=== PATIENT | female | born 1985 | race Caucasian/White ===

== ENCOUNTER 2018-04-30 20:03 | Emergency (ER) | payer MEDICAID ==
[~2018-04-30] VITALS: Ht 172.7 cm; Wt 59.4 kg
--- NOTE | 2018-04-30 20:45 | NUR ---
Dr. Rayo at bedside for MSE.
[2018-04-30] MEDS ORDERED: KETOROLAC TROMETHAMINE 15 MG INJ IVP ONE (21:00)
[2018-04-30] MEDS ORDERED: DEXAMETHASONE SOD PHOSPHATE 4 MG INJ IV ONE (21:00)
[2018-04-30] MEDS ORDERED: IV NORMAL SALINE 1000 ML BAG IV ONE (21:00)
--- NOTE | 2018-04-30 21:00 | NUR ---
Pt provided urine sample, sent lab.
[2018-04-30] MEDS ORDERED: KETOROLAC TROMETHAMINE 15 MG INJ ONE (21:28)
[2018-04-30] MEDS ORDERED: DEXAMETHASONE SOD PHOSPHATE 10 MG INJ ONE (21:28)
[2018-04-30 21:31] LABS: BASOPHILS # (AUTO) 0.1 K/uL (0.0-8.0); BASOPHILS % (AUTO) 0.4 % (0.0-2.0); HEMATOCRIT 39.1 % (31.2-41.9); HEMOGLOBIN 13.5 g/dL (10.9-14.3); LYMPHOCYTES # (AUTO) 1.2 K/uL (20.0-40.0); LYMPHOCYTES % (AUTO) 8.3 % (20.5-51.5); MEAN CORPUSCULAR HEMOGLOBIN 30.7 uug (24.7-32.8); MEAN CORPUSCULAR HGB CONC 35 g/dL (32.3-35.6); MONOCYTES # (AUTO) 1.1 K/uL (2.0-10.0); MONOCYTES % (AUTO) 7.4 % (0.0-11.0); NEUTROPHILS # (AUTO) 12.3 K/uL (1.8-8.9); NEUTROPHILS % (AUTO) 83.9 % (38.5-71.5); PLATELET COUNT (AUTO) 295 K/uL (179-408); RED BLOOD CELL COUNT(AUTO) 4.39 MIL/uL (3.63-4.92); WHITE BLOOD COUNT (AUTO) 14.6 K/uL (3.8-11.8)
[2018-04-30] MEDS ORDERED: ONDANSETRON 4 MG/2 ML VIAL ONE (21:37)
[2018-04-30 21:41] LABS: POTASSIUM 4.1 mmol/L (3.5-5.1)
[2018-04-30] MEDS ORDERED: ONDANSETRON IV *ER 4 MG/2 ML VIAL IV ONE (21:45)
[2018-04-30 21:48] LABS: BILIRUBIN,DIRECT 0.1 mg/dL (0.0-0.2); BILIRUBIN,TOTAL 0.6 mg/dL (0.2-1.0); TOTAL PROTEIN, SERUM 8.4 g/dL (6.4-8.2)
[2018-04-30 22:12] LABS: *BILIRUBIN,URIN NEGATIVE (NEGATIVE); *BLOOD, URINE 2+ (NEGATIVE); *CLARITY,URINE CLEAR (CLEAR); *COLOR,URINE YELLOW (YELLOW); *KETONES,URINE NEGATIVE (NEGATIVE); *PROTEIN,URINE NEGATIVE (NEGATIVE); *UROBILINOGEN,URINE 0.2 E.U./dl (NORMAL); LEUKOCYTE ESTERASE ,URINE NEGATIVE (NEGATIVE); NITRITE, URINE NEGATIVE (NEGATIVE); PH,URINE 8.5 (5.0-8.0); UGLUCOSE NEGATIVE (NEGATIVE)
[2018-04-30 22:15] LABS: *URINE HCG, QUAL NEGATIVE (NEGATIVE)
[2018-04-30 22:32] LABS: BACTERIA,URINE MANY /HPF (NONE SEEN); RENAL EPITHELIAL CELLS,URINE FEW /LPF (NONE SEEN); SQUAMOUS EPITHELIAL CELL,UR MANY /HPF (NONE SEEN)
[2018-04-30] MEDS ORDERED: ACETAMINOPHEN 325 MG TABLET PO ONE (23:15)
[2018-04-30] MEDS ORDERED: ACETAMINOPHEN ES 500 MG TABLET ONE (23:16)
--- NOTE | 2018-05-01 00:10 | NUR ---
Patient discharged to home in stable conditon. Written and verbal after care instructions given. Patient verbalizes understanding of instructions. Pt ambulated out of ER with steady gait, no acute signs of distress, VSS, all belongings taken, IV site discontinued.
[2018-05-01 00:11] VITALS: BP 98/67
== END 2018-05-01 00:11 | disposition home or self-care (01) ==
LOC: ER 20:03
DX: B34.9 Viral infection, unspecified (principal)
CPT/HCPCS: 36415; 71045; 80048; 80076; 81001; 83605; 84484; 84703; 85025; 85730; 86403; 87040 ×2; 87400; 96361; 96374; 96375; 99285; J1885; J2405; 70030-TC; 87070; 87086; A4663; A9150; J1100; J7030

== ENCOUNTER 2018-05-01 23:19 | Emergency (ER) | payer MEDICAID ==
[~2018-05-01] VITALS: Ht 172.7 cm; Wt 59.0 kg
--- NOTE | 2018-05-01 23:38 | NUR ---
PT A/OX4, ABLE TO FOLLOW COMMANDS. PT C/O R EARACHE W/ R-SIDED FACIAL NUMBNESS AND PAIN THAT STARTED 1400. PT STATES SHE'S HAD THIS BEFORE AND THAT THIS HAPPENS EVERY TIME SHE GETS SICK. PT WAS SEEN IN THIS ER YESTERDAY AND DISCHARGED W/ DX OF VIRAL INFECTION. VSS. DENIES SOB, C/P, N/V/D, DIZZINESS, HEADACHE.
--- NOTE | 2018-05-01 23:55 | NUR ---
CELI CASH AT BEDSIDE FOR MSE.
--- NOTE | 2018-05-02 00:10 | NUR ---
PAGED ENT MD ARTIST MODEL FOR [facility]. LEFT A MESSAGE. AWAITING CALL-BACK.
--- NOTE | 2018-05-02 01:08 | NUR ---
Patient discharged to home in stable conditon. Written and verbal after care instructions given. Patient verbalizes understanding of instructions. PT D/C HOME W/ PRESCRIPTIONS. ALL BELONGINGS W/ PT. PT SELF-AMBULATED W/O DIFFICULTY.
[2018-05-02 01:14] VITALS: BP 112/62
== END 2018-05-02 01:14 | disposition home or self-care (01) ==
LOC: ER 23:32
DX: H92.01 Otalgia, right ear (principal)
CPT/HCPCS: A4663

== ENCOUNTER 2021-02-21 17:55 | Emergency (ER) | payer MEDICAID, OTHER ==
--- NOTE | 2021-02-21 18:44 | NUR ---
CALLED FOR TRIAGE - NOT IN WAITING ROOM.
--- NOTE | 2021-02-21 19:00 | NUR ---
PATIENT WAS CALLED TO BE TRIAGED BUT WAS NOT PRESENT IN THE WAITING ROOM OR OUTSIDE OF ER.
--- NOTE | 2021-02-21 19:35 | NUR ---
PATIENT WAS CALLED TO BE TRIAGED BUT WAS NOT PRESENT IN WAITING ROOM OR OUTSIDE OF ER. PATIENT WAS NOT TRAIGED OR SEEN BY ERMD.
== END 2021-02-21 19:36 | disposition left against medical advice (07) ==
LOC: ER 17:55
DX: Z53.21 Procedure and treatment not carried out due to patient leaving prior to being seen by health care provider (principal)